=== PATIENT | male | born 1965 | race Caucasian/White ===

== ENCOUNTER → 2022-11-13 | Day surgery (SDC) | payer BC ==
[2022-11-10 17:09] LABS: Potassium 3.5 mmol/L (3.5-5.1)
--- NOTE | 2022-11-14 15:20 | EKG ---
Test Date: 2022-11-10 Test Time: 16:01:21 Weft Straightener: CHANDRIKA MEASUREMENT RESULTS: Intervals: Rate: 72 [place]: 158 QRSD: 110 QT: 416 QTc: 455 [place]: P: 75 [place]: 158 QRS: 21 T: 71 INTERPRETIVE STATEMENTS: Sinus rhythm with frequent and consecutive premature ventricular complexes Abnormal ECG Compared to ECG 11/10/2022 16:00:50 Ventricular premature complex(es) now present Prolonged QT interval no longer present Electronically Signed On 11-14-22 15:17:04 GLASS SETTER by Bebeto Prado
== END ==
LOC: OR 08:30
PROVIDERS: ATTEND Surgery
DX: K40.90 Unilateral inguinal hernia, without obstruction or gangrene, not specified as recurrent (principal); Z53.09 Procedure and treatment not carried out because of other contraindication
CPT/HCPCS: 36415; 80048; 93005

== ENCOUNTER 2023-01-15 07:26 | Day surgery (SDC) | payer BC ==
[2023-01-12 13:38] LABS: Potassium 3.6 mmol/L (3.5-5.1)
[2023-01-15] MEDS ORDERED: BUPIVACAINE 0.5% PF 10 ML VIAL ONE (07:36)
[2023-01-15] MEDS ORDERED: CEFAZOLIN SODIUM 2 GM/VIAL ONE (07:51)
[2023-01-15] MEDS ORDERED: Ringers Lactate 1,000 ML IV ONE ×2 (07:51→10:43)
[2023-01-15] MEDS ORDERED: propofoL 200 MG/20 ML VIAL IV ONE (08:03)
[2023-01-15] MEDS ORDERED: LIDOCAINE 2% MPF 5 ML VIAL ONE (08:03)
[2023-01-15] MEDS ORDERED: MIDAZOLAM HCL 2 MG/2 ML INJ ONE (08:03)
[2023-01-15] MEDS ORDERED: ROCURONIUM 50 MG/5 ML VIAL IV ONE (08:03)
[2023-01-15] MEDS ORDERED: dexAMETHasone 4 MG/ML VIAL ONE (08:03)
[2023-01-15] MEDS ORDERED: FENTANYL CITR 100 MCG/2 ML ONE (08:03)
[2023-01-15] MEDS ORDERED: ONDANSETRON 4 MG/2 ML VIAL ONE (08:03)
[2023-01-15] MEDS ORDERED: ACETAMINOPHEN 500 MG TAB ONE (08:17)
[2023-01-15] MEDS ORDERED: NS 0.9% VIAL 20 ML ONE (08:41)
[2023-01-15] MEDS ORDERED: EPHEDRINE SULF 50 MG/ML VIAL ONE (09:12)
[2023-01-15] MEDS ORDERED: NS 0.9% VIAL 10 ML ONE (09:36)
[2023-01-15] MEDS ORDERED: VECURONIUM 10 MG/VIAL IV ONE (09:36)
[2023-01-15] MEDS ORDERED: NEOSTIGMINE 1 MG/ML -10 ML VIAL ONE (10:36)
[2023-01-15] MEDS ORDERED: GLYCOPYRROLATE 0.2 MG/ML SYR ONE ×2 (10:36→10:42)
--- NOTE | 2023-01-15 10:44 | P.OP ---
Preoperative diagnosis: RIGHT Inguinal Hernia Postoperative diagnosis: RIGHT Inguinal Hernia Primary procedure: Open RIGHT inguinal hernia repair with mesh Anesthesia: GETA + Local Estimated blood loss: <5cc Specimen: Hernia Sack Findings: Pantaloon large inguinal hernia Complications: None Implants: Bard Perfix Large plug and patch system Transferred to: Recovery Room Condition: Good
[2023-01-15] MEDS ORDERED: HYDROCODONE/APAP 7.5/325 MG TAB ONE (12:00)
[2023-01-15 12:37] VITALS: TEMP 97; O2SAT 96
[2023-01-15 15:03] VITALS: BP 103/61
--- NOTE | 2023-01-15 21:34 | OP ---
Date of Procedure: 01/15/2023 Surgeon: Sloan Rascon MD, Preoperative Diagnosis: Right inguinal hernia. Postoperative Diagnosis: Right inguinal hernia. Procedure Performed: Open right inguinal hernia repair with mesh. Anesthesia: General endotracheal plus local. Estimated Blood Loss: Less than 5 cc. Specimen: Hernia sac. Findings: Pantaloon large inguinal hernia, combined indirect direct hernia. Complications: None. Implants: Bard PerFix Plug And Patch Hernia Repair System. Disposition: The patient transferred to recovery room in good condition. Procedure In Detail: After informed consent was obtained, the patient was prepped and draped in the usual sterile fashion. After adequate anesthesia was achieved, I made an inguinal incision in the [facility] inguinal region down to subcutaneous tissues. I dissected down through Camper fat and Nura fas vargas to expose the external oblique aponeurosis. This was opened sharply following the direction of t he fibers with a 15 blade then followed by Metzenbaum scissors over this entirety. I then dissected the spermatic cord and structures and encircled them with a Conner drain. I then dissected the darrion ia sac off the medial aspect and found it to be a pantaloon type indirect direct inguinal hernia with respect to the epigastric vessels. The floor of the inguinal canal was quite labile, consistent wit h the additional hernia, which was noted at this point. I then dissected the hernia sac and contents free. I opened the hernia sac and returned the intraperitoneal adipose tissue to the preperitoneal space. I ligated the hernia sac at this point, sent it off for pathologic examination. I then sewed the edges of the hernia sac closed and imbricated the sac internally and created a preperitoneal spa ce for a large Bard PerFix plug. I then deployed the plug system in the preperitoneal space at this point and secured it circumferentially around to the shelving edge using a 0 PDS suture, 4 sutures we re used to secure it circumferentially around. I then sized the hernia patch appropriately, returned the direct hernia to its position, and closed the tissues over the top with simple tissue repair. I then placed the hernia patch over the top of this to repair the direct inguinal hernia at this point . I secured the patch to the pubic tubercle in the medial aspect in the medial and lateral shelving edge of the internal oblique aponeurosis and the undersurface of the inguinal ligament circumferentia lly around the deep ring. The spermatic cord and structures were protected. I then had the patient Valsalva and was placed in reverse Trendelenburg. No defects were appreciated at this point. I then returned the spermatic cord and structures to the normal anatomic position. After removing the Penr ose drain, irrigated the area copiously, and then suctioned completely dry. I then closed the leather seasoner al oblique aponeurosis over the top using a running 3-0 Vicryl suture. Camper fat and Nura fascia were closed with interrupted 3-0 Vicryl sutures and the deep dermal plane was then closed using 3-0 V icryl sutures and skin was closed with a 4-0 Monocryl in running fashion. Dermabond was placed over top. The patient tolerated the procedure without evidence of any complication and transferred to PAC U in good condition. All counts were correct at the end of the case. DAY/ОЛЬГА Voice ID: [id number] Report ID: [id number]
== END 2023-01-15 14:50 | disposition home or self-care (01) ==
LOC: OR 07:26
PROVIDERS: ATTEND Surgery
PROC: 0YU50JZ Supplement Right Inguinal Region with Synthetic Substitute, Open Approach (ICD-10-PCS; principal; 2023-01-15 08:30)
DX: K40.90 Unilateral inguinal hernia, without obstruction or gangrene, not specified as recurrent (principal); I10 Essential (primary) hypertension; J45.909 Unspecified asthma, uncomplicated; K21.9 Gastro-esophageal reflux disease without esophagitis
CPT/HCPCS: 80048; 36415; 88302; 49505; J2704; J1100; J2710; J2001; J2250; J3010; A4216 ×2; J7120 ×2; J2405